=== PATIENT | female | born 1985 | race Caucasian/White ===

== ENCOUNTER 2017-10-29 15:51 | Emergency (ER) | payer OTHER, SELFPAY ==
[2017-10-29 15:53] VITALS: BP 125/89; PULSE 121; RESP 18; TEMP 37.4; O2SAT 98; BMI 33.6
[2017-10-29 16:33] LABS: Bacteria 0 SEEN /hpf (None Seen); Red Blood Cells-Urine 0 SEEN /hpf (0-5); White Blood Cells 0 SEEN /hpf (0-5)
[2017-10-29] MEDS: Ondansetron 4 MG/2 ML Vial IV (16:35)
[2017-10-29] MEDS: Morphine 4 MG/ML Syringe IV (16:35)
[2017-10-29] MEDS: 0.9% Normal Saline 1,000 ML 1000 ML IV (16:35)
[2017-10-29 16:36] LABS: Color, Urine Yellow (Yellow); Glucose, Dipstick Normal (Normal); Ketone-Dipstick Negative (Negative); Leukocyte Esterase-Dipstick 25 /ul (Negative); Nitrite-Dipstick Negative (Negative); Occult Blood-Urine Negative /ul (Negative); Protein-Dipstick Negative (Negative); Urine Bilirubin Dipstick Negative (Negative); Urine Clarity Clear (Clear); Urine Urobilinogen Normal (Normal)
[2017-10-29 16:45] LABS: Mucous, Urine 1+ /hpf (<or=2+); Squamous Epithelial Cells - UA 0-5 SEEN /hpf (5-10)
[2017-10-29 16:53] LABS: Absolute Lymphocyte Count 2.74 X10^3/ul (0.83-4.51); Absolute Neutrophil Count 5.1 X10^3/uL (2.0-7.7); Basophil# 0.02 X10^3/uL; Basophil% 0.2 % (0-1); Differential Indicated SCAN CRITERIA MET; Eosinophil# 0.08 X10^3/uL; Eosinophils% 0.9 % (0-5); Hemoglobin 11.4 g/dl (12.0-15.0); Lymphocyte # 2.74 X10^3/ul (4.0); Mean Corp Hgb Conc 30.8 g/gl (32-36); Mean Corpuscular Hgb 24.5 pg (27.0-32.0); Mean Corpuscular Volume 79.6 fL (81-99); Mean Platelet Vol. 11.1 fl (6.2-12.0); Monocyte# 0.63 X10^3/uL; Monocyte% 7.4 % (0-10); Neutrophil # 5.05 X10^3/uL (2.7-7.7); Neutrophil % 59.1 % (47-70); POSITIVE COUNT NO; POSITIVE DIFFERENTIAL NO; POSITIVE MORPHOLOGY YES; Platelet Count 293 K/mm3 (150-450); RBC Distribution Width CV 15.5 % (11.6-14.6); Red Blood Count 4.65 M/mm3 (4.2-5.4); White Blood Count 8.6 K/mm3 (4.4-11.0)
[2017-10-29 16:55] LABS: AST(SGOT) 10 U/L (15-37); Alanine Aminotransfer ALT/SGPT 19 U/L (13-56); Albumin, Serum 3.4 g/dL (3.2-5.0); Alkaline Phosphatase 74 U/L (45-117); Anion Gap 6 (5-15); BUN 13 mg/dL (7-18); BUN/Creat Ratio 14.6 RATIO (10-20); Bilirubin, Direct < 0.05 mg/dL (0.00-0.30); Calcium,Total 8.6 mg/dL (8.5-10.1); Chloride 107 mmol/L (98-107); Creatinine, Serum 0.89 mg/dL (0.55-1.02); EST Glomerular Filtration Rate 78 mL/min (>60); Est Glom Filt Rate - Afr Amer 95 mL/min (>60); Estimated Creatinine Clearance 89.06 ml/min; Globulin 4.4 g/dL (2.2-4.2); Glucose 91 mg/dL (74-106); Lipase 167 U/L (73-393); Potassium 3.8 mmol/L (3.5-5.1); Protein, Total 7.8 g/dL (6.4-8.2); Sodium Level 139 mmol/L (136-145)
[2017-10-29 17:32] LABS: Differential Comment SCANNED
[2017-10-29 17:34] LABS: Pregnancy, Serum, hCG Quali. NEGATIVE Negative (0-9 Nonpreg)
[2017-10-29 18:28] VITALS: RESP 18; O2SAT 98
--- NOTE | 2017-10-29 18:42 | ED.VISSUMM ---
- ER Visit Summary Date of Service: 10/29/17 Chief Complaint: Right flank pain History of Present Illness: The patient is a 31 F with 3 days of intermittent right flank pain radiating anteriorly. No left-sided pain. No chest pain or shortness breath. No cough. No urinary symptoms such as hematuria or dysuria. She is nauseated and she vomited one time. No diarrhea. Denies previous similar symptoms. Physical Examination: She is slightly tachycardic in triage but other vitals are within normal limits. She is not in distress. Mucous members are slightly dry. Neck is supple. Heart tones are regular and without murmur. Lungs are clear bilaterally. Abdomen is soft and nontender. There is slight right flank percussion tenderness but no overlying rash. Strong pulses in all extremities. Test Results: CBC and BMP are both normal. Urinalysis reveals leukoesterase only but no other signs of infection and she has no urinary frequency or urgency. CT abdomen pelvis without contrast is negative for acute process. Emergency Department Course and Treatment: She was given IV fluids and Zofran, and morphine she was observed and on reexamination she is completely pain-free and her heart rate has improved. Exact cause of her pain is not clear at this point. There is no evidence of ureteral stone. She has only leuk esterase in her urine and no urinary symptoms so I sent it for culture but at this point I do not feel she needs antibiotics. She has no evidence of an acute surgical abdomen. I talked at length with her. She feels well. She is comfortable going home and following up closely with her doctor but she will return if worse. Treatment Plan: Follow closely with her doctor, return if worse Disposition: Home stable condition Impression: Initial encounter right flank pain uncertain etiology This note was generated with [employer] dictation software. It may contain incorrect words, spelling, and punctuation that were not noted in review of the chart prior to signing ED Disposition - Plan for ED Patient: Chief Complaint: General Illness Instructions: ED Flank Pain Uncertain Cause Prescriptions: Naproxen [Naprosyn] 500 mg PO BID #20 tablet Referrals: Care Physician,No Primary [Primary Care Provider] -
--- NOTE | 2017-10-29 19:02 | ED.VISSUMM ---
- ER Visit Summary Date of Service: 10/29/17 Chief Complaint: [] History of Present Illness: The patient is a 31 F [] Physical Examination: [] Test Results: [] Emergency Department Course and Treatment: [] Treatment Plan: [] Disposition: [] Impression: [] This note was generated with [employer] dictation software. It may contain incorrect words, spelling, and punctuation that were not noted in review of the chart prior to signing ED Disposition - Plan for ED Patient: Chief Complaint: General Illness Instructions: ED Flank Pain Uncertain Cause Prescriptions: Acetaminophen [Tylenol Extra Strength] 500 mg PO TID PRN #20 tablet PRN Reason: Pain Referrals: Care Physician,No Primary [Primary Care Provider] -
[2017-10-29 19:05] VITALS: PULSE 78; RESP 18
== END 2017-10-29 19:06 | disposition home or self-care (01) ==
LOC: ED 16:49
PROVIDERS: Emergency Provider Emergency Medicine
DX: R10.9 Unspecified abdominal pain (principal); R11.2 Nausea with vomiting, unspecified; M54.9 Dorsalgia, unspecified; Z90.49 Acquired absence of other specified parts of digestive tract; Z90.711 Acquired absence of uterus with remaining cervical stump
CPT/HCPCS: 74176; 80048; 80076; 81001; 83690; 84703; 85025; 87086; 96361; 96374; 96375; 99283; J7030; A4216; J2405

== ENCOUNTER 2017-10-30 18:34 | Emergency (ER) | payer OTHER, SELFPAY ==
[2017-10-30 18:35] VITALS: BP 152/99; PULSE 134; RESP 16; TEMP 37.1; O2SAT 99; BMI 33.7
[2017-10-30 20:00] VITALS: PULSE 92; RESP 20; O2SAT 98
[2017-10-30] MEDS: Dicyclomine 10 MG Capsule 20 MG PO (20:06)
--- NOTE | 2017-10-30 21:16 | ED.VISSUMM ---
- ER Visit Summary Date of Service: 10/30/17 Chief Complaint: Sharp right-sided abdominal pain with no associated symptoms or radiation. History of Present Illness: The patient is a 31 F who was seen yesterday for right-sided pain. She had a significant workup with no determine etiology of her right-sided abdominal/flank pain. She denies fever, chills night sweats. She denies any URI symptoms. She denies any chest pain, shortness of breath or difficulty breathing. She denies nausea, vomiting, diarrhea or constipation. She denies dysuria, frequency, urgency or hematuria. She denies any history of trauma. She denies any skin lesions. She denies any alleviating, exacerbating or precipitating factors. Physical Examination: Vital signs remarkable for sinus tachycardia 134. She appears in no distress. She has a flat affect. HEENT exam is unremarkable. Heart is regular without murmur, gallop or rub. S1 and S2 are normal. Lungs are clear to auscultation with good movement of air bilaterally. Abdomen is soft and nontender when patient is distracted unaware of palpating her abdomen. Otherwise she complains of severe pain out of proportion to light tactile touch on the right side. Bowel sounds are present normal. There is no CVA tenderness. There is evidence of umbilical or inguinal hernia. There is no evidence of trauma. There is no skin lesions. The remainder of exam is unremarkable. Test Results: Lab tests from yesterday were reviewed. Since her exam is unremarkable did not repeat any. Emergency Department Course and Treatment: Patient was treated with Bentyl. I was informed by nurse that she reports no effect or improvement. Treatment Plan: Patient was told the cause of her pain is unknown. She was told she had a significant complete workup yesterday and since her vital signs are normal and her abdominal exam a medical standpoint is benign no further testing was performed. Disposition: Discharged to home Impression: Right-sided abdominal pain of unknown etiology This note was generated with [employer] dictation software. It may contain incorrect words, spelling, and punctuation that were not noted in review of the chart prior to signing ED Disposition - Plan for ED Patient: Disposition: Home or Assisted Living Chief Complaint: Palpitations Instructions: ED Abdominal Pain Unkn Cause Referrals: Care Physician,No Primary [Primary Care Provider] -
[2017-10-30 21:24] VITALS: BP 117/84; PULSE 85; RESP 20; O2SAT 98
== END 2017-10-30 21:24 | disposition home or self-care (01) ==
PROVIDERS: Emergency Provider Emergency Medicine
DX: R10.9 Unspecified abdominal pain (principal); R00.0 Tachycardia, unspecified; E66.9 Obesity, unspecified; Z90.710 Acquired absence of both cervix and uterus
CPT/HCPCS: 93005; 99282

== ENCOUNTER → 2024-01-05 | Outpatient (CLI) | payer OTHER, SELFPAY ==
[2024-01-05 11:18] LABS: Erythrocyte Sedimentation Rate 25 mm/hr (0-30)
[2024-01-05 11:50] LABS: Vitamin B12 445 pg/mL (211-911)
[2024-01-05 11:59] LABS: ALB/GLOB Ratio 0.8 RATIO (0.9-2.4); AST(SGOT) 14 U/L (15-37); Alanine Aminotransfer ALT/SGPT 29 U/L (13-56); Albumin, Serum 3.3 g/dL (3.2-5.0); Alkaline Phosphatase 87 U/L (45-117); Anion Gap 3 (5-15); BUN 9 mg/dL (7-18); BUN/Creat Ratio 10.8 RATIO (10-20); CRP 8.27 mg/L (0.0-3.0); Calcium,Total 8.9 mg/dL (8.5-10.1); Chloride 110 mmol/L (98-107); Creatinine, Serum 0.84 mg/dL (0.55-1.02); EST Glomerular Filtration Rate 81 mL/min (>60); Est Glom Filt Rate - Afr Amer 98 mL/min (>60); Globulin 4.4 g/dL (2.2-4.2); Glucose 115 mg/dL (74-106); LDH 165 U/L (84-246); Potassium 4.3 mmol/L (3.5-5.1); Protein, Total 7.7 g/dL (6.4-8.2); Sodium Level 138 mmol/L (136-145)
[2024-01-10 04:07] LABS: ACCA 23 units (0-90); ALCA 9 units (0-60); AMCA 16 units (0-100); Albumin 3.2 g/dL (2.9-4.4); Alpha-1-Globulins 0.2 g/dL (0.0-0.4); Alpha-2-Globulins 0.8 g/dL (0.4-1.0); Angiotensin Convert Enzyme 37 U/L (14-82); Anti-Parietal Cell AB, QN 2.7 Units (0.0-20.0); Chromogranin A 514.1 ng/mL (0.0-101.8); Cytoplasmic Ab (C-ANCA) <1:20 titer (Neg:<1:20); Endomysial Antibody IgA Negative (Negative); Gamma Globulin 1.3 g/dL (0.4-1.8); Gastrin, Serum 102 pg/mL (0-115); IgG, Quant 1446 mg/dL (586-1602); Immunoglobulin A 277 mg/dL (87-352); Immunoglobulin E 39 IU/mL (6-495); Immunoglobulin G, Subclass 1 610 mg/dL (248-810); Immunoglobulin G, Subclass 2 615 mg/dL (130-555); Immunoglobulin G, Subclass 3 68 mg/dL (15-102); Immunoglobulin G, Subclass 4 49 mg/dL (2-96); Immunoglobulin M 111 mg/dL (26-217); PROEL- TOTAL PROTEIN 6.7 g/dL (6.0-8.5); Perinuclear Ab (P-ANCA) <1:20 titer (Neg:<1:20); gASCA 9 units (0-50); t-Transglutaminase IgA <2 U/mL (0-3)
[2024-01-13 01:07] LABS: Anti-Centromere B Ab <0.2 AI (0.0-0.9); Anti-Chromatin <0.2 AI (0.0-0.9); Anti-Jo <0.2 AI (0.0-0.9); Anti-Scleroderma-70 AB <0.2 AI (0.0-0.9); Anti-dsDNA Ab <1 IU/mL (0-9); Beef <0.10 kU/L (Class 0); Chocolate <0.10 kU/L (Class 0); Codfish <0.10 kU/L (Class 0); Corn <0.10 kU/L (Class 0); Egg, Whole <0.10 kU/L (Class 0); Milk (Cow) <0.10 kU/L (Class 0); Mussels <0.10 kU/L (Class 0); Peanut <0.10 kU/L (Class 0); Pork <0.10 kU/L (Class 0); RNP Ab <0.2 AI (0.0-0.9); SJOGREN'S Anti-SS-A test < 0.2 AI (0.0-0.9); SJOGREN'S Anti-SS-B test < 0.2 AI (0.0-0.9); Salmon <0.10 kU/L (Class 0); Shrimp <0.10 kU/L (Class 0); Smith Ab <0.2 AI (0.0-0.9); Soybean <0.10 kU/L (Class 0); Tuna <0.10 kU/L (Class 0); Wheat <0.10 kU/L (Class 0)
== END | disposition home or self-care (01) ==
PROVIDERS: PCP Nurse Practitioner Family; Referring Provider Internal Medicine Gastroenterology; Visit Provider Internal Medicine Gastroenterology
DX: R10.11 Right upper quadrant pain (principal); R11.0 Nausea
CPT/HCPCS: 36415; 80053; 82164; 82607; 82746; 82784; 82785; 82787; 82941; 83516; 83615; 84165; 85652; 86003; 86005; 86036; 86037; 86140; 86225; 86235; 86255; 86316; 86334; 86340; 86671

== ENCOUNTER → 2024-02-22 | Outpatient (CLI) | payer OTHER, SELFPAY ==
--- NOTE | 2024-02-22 10:42 | NM_ITS ---
CLINICAL: 38-year-old female with history of abdominal pain. SEMI-SOLID PHASE 99m Tc SULFUR COLLOID GASTRIC EMPTYING STUDY COMPARISON: None available FINDINGS: The patient was administered 1.2 mCi of 99m Tc sulfur colloid mixed with oatmeal and consumed per os. Image acquisitions in the anterior-posterior projections were obtained for 60 minutes. There is prompt visualization of the stomach. There is no gastroesophageal reflux identified. The T ? linear fit was calculated to be 28.76 minutes, (Normal: 12-56 minutes). NM/Gastric Emptying Study IMPRESSION: 1. NORMAL 99m Tc sulfur colloid semi-solid phase (oatmeal) gastric emptying imaging examination. A. There is normal and preserved semi-solid phase gastric emptying compared to normal controls. (Castillo et al, J Nucl Med Tech 38: 186, 2010). Electronically Signed: Booker Santiago DO at 8:06 EST ,
== END | disposition home or self-care (01) ==
LOC: NM 10:40
PROVIDERS: PCP Nurse Practitioner Family; Referring Provider Internal Medicine Gastroenterology; Visit Provider Internal Medicine Gastroenterology
DX: R10.11 Right upper quadrant pain (principal); R11.0 Nausea
CPT/HCPCS: 78264; A9541